=== PATIENT | male | born 1940 | race Caucasian/White ===

== ENCOUNTER 2016-08-07 19:39 | Observation (INO) | payer MEDICARE, OTHER ==
[~2016-08-07 19:39] MED LIST: ACTOS45 MG; ADULT ASPIRIN81 MG PO; ASPIR 8181 MG; ASPIR-LOW81 M1; BYETTA10 MCG/0.0; BYETTA10 MCG/0.0 SQ; CARDURA1 MG PO; CARDURA2 M2 PO; CARDURA4 MG PO; COZAAR50 MG; EQL FISH OIL 1,1 CA1 PO; FISH OIL 1,0001 CAP; FISH OIL PO; FLOMAX0.4 MG; FLOMAX0.4 MG PO; FOLIC ACID1 MG; FOLIC ACID1 MG PO; FOSAMAX70 MG; FOSAMAX70 MG PO; GLIPIZIDE ER2.5 M1 PO; GLUCOPHAGE1000 M1 PO; GLUCOPHAGE500 MG PO; IMDUR30 MG PO; ISOSORBIDE MONO30 M4 PO; ISOSORBIDE MONO60 M3 PO; LIPITOR40 MG; LOPRESSOR PO; LOPRESSOR100 M1 PO; LOPRESSOR100 MG PO; LOPRESSOR50 MG PO; LOSARTAN POTASS50 MG PO; MACROBID 100 M100 MG PO; METFORMIN HCL500 MG; NITROFURANTOIN50 M1 PO; NITROGLYCERIN0.4 M1 PO; NITROSTAT0.4 MG SL; NORVASC2.5 MG PO; NORVASC5 M1 PO; PLAVIX75 M1; PLAVIX75 MG; PLAVIX75 MG PO; PRAVACHOL80 MG PO; PROTONIX40 M2 PO; RANEXA500 MG PO; TOPROL XL100 MG; VITAMIN D; VITAMIN D1000 UNIT PO; VITAMIN D400 UNI1 PO; VITAMIN D5000 UNIT PO; ZESTRIL5 MG PO; ZETIA10 MG; ZOCOR80 MG PO; [UNRECOGNIZED DRUG - OTHER] PO
[2016-08-07 20:26] LABS: BASO % 0.3 % (0-2); EOS % 5.3 % (0-7); EOSINOPHIL ABSOLUTE COUNT 0.3 tho/cmm (0.0-0.7); HCT-HEMATOCRIT 39.7 % (36.0-53.5); HGB-HEMOGLOBIN 13.8 gm/dl (13.5-17.0); IMMATURE GRANULOCYTES ABSOLUTE 0.01 tho/cmm (0-0.03); IMMATURE GRANULOCYTES PERCENT 0.2 % (0-0.3); LYMPH % 27.4 % (20-45); LYMPH ABSOLUTE COUNT 1.6 tho/cmm (0.8-4.5); MCH (MEAN CORPUSCULAR HGB) 31.3 pg (28.0-32.0); MCHC MEAN CORPUSCULAR HGB CONC 34.8 % (32.0-36.0); MEAN PLATELET VOLUME 9.5 cmc (9.4-12.4); MONO % 10.2 % (0-12); MONOCYTE ABSOLUTE COUNT 0.6 tho/cmm (0.0-1.2); NEUTROPHIL ABSOLUTE COUNT 3.3 tho/cmm (1.6-8.0); NEUTROPHIL-AUTOMATED 3.3 tho/cmm (1.6-8.0); NEUTROPHILS % 56.6 % (40-80); PLATELET COUNT 166 tho/cmm (150-450); RED BLOOD COUNT 4.41 mil/cmm (4.40-5.70); WHITE BLOOD COUNT 5.8 tho/cmm (4.0-10.0)
[2016-08-07 20:42] LABS: ANION GAP 12 mmol/L (0-20); BLOOD UREA NITROGEN 18 mg/dl (6-24); CALCIUM 8.7 mg/dl (8.5-10.5); CARBON DIOXIDE-VENOUS 29 mmol/L (22-32); CHLORIDE 104 mmol/l (96-110); CREATININE 1.33 mg/dl (0.60-1.30); GLUCOSE 160 mg/dL (70-110); POTASSIUM 4.3 mmol/L (3.7-5.1); SODIUM 141 mmol/L (135-145); eGFR VALUE FOR BLACK 59 mL/Min
[2016-08-08 06:10] LABS: BLOOD UREA NITROGEN 19 mg/dl (6-24); CALCIUM 8.6 mg/dl (8.5-10.5); CARBON DIOXIDE-VENOUS 26 mmol/L (22-32); CHLORIDE 105 mmol/l (96-110); GLUCOSE 147 mg/dL (70-110); SODIUM 140 mmol/L (135-145)
[2016-08-08 06:13] LABS: CHOLESTEROL 133 mg/dl (120-200); CREATININE 1.24 mg/dl (0.60-1.30); HDL CHOLESTEROL 28 mg/dl (40-60); VLDL 88 mg/dl (0-30); eGFR VALUE FOR BLACK 64 mL/Min
[2016-08-08 06:26] LABS: ANION GAP 13 mmol/L (0-20); TRIGLYCERIDES 442 mg/dl (<149)
[2016-08-08 06:27] LABS: POTASSIUM 4.2 mmol/L (3.7-5.1)
[2016-08-09 03:17] LABS: ANION GAP 10 mmol/L (0-20); BLOOD UREA NITROGEN 16 mg/dl (6-24); CALCIUM 8.2 mg/dl (8.5-10.5); CARBON DIOXIDE-VENOUS 27 mmol/L (22-32); CHLORIDE 109 mmol/l (96-110); CREATININE 1.19 mg/dl (0.60-1.30); GLUCOSE 145 mg/dL (70-110); POTASSIUM 4.2 mmol/L (3.7-5.1); SODIUM 142 mmol/L (135-145); eGFR VALUE FOR BLACK 67 mL/Min
== END 2016-08-09 09:39 ==
LOC: EDMED 19:39 → EMR2 21:23 → CAR1 23:25 → PCUA 08-08 15:52
PROVIDERS: Emergency Medicine; Internal Medicine Interventional Cardiology; Physician Assistant Medical; ADMIT Internal Medicine Cardiovascular Disease
PROC: 4A023N7 Measurement of Cardiac Sampling and Pressure, Left Heart, Percutaneous Approach (ICD-10-PCS; principal; 2016-08-08)
PROC: B2131ZZ Fluoroscopy of Multiple Coronary Artery Bypass Grafts using Low Osmolar Contrast (ICD-10-PCS; 2016-08-08)
PROC: B2151ZZ Fluoroscopy of Left Heart using Low Osmolar Contrast (ICD-10-PCS; 2016-08-08)
PROC: 027135Z Dilation of Coronary Artery, Two Arteries with Two Drug-eluting Intraluminal Devices, Percutaneous Approach (ICD-10-PCS; 2016-08-08)
DX: I25.110 Atherosclerotic heart disease of native coronary artery with unstable angina pectoris (principal); I73.9 Peripheral vascular disease, unspecified; I10 Essential (primary) hypertension; E11.9 Type 2 diabetes mellitus without complications; E78.5 Hyperlipidemia, unspecified; Z79.82 Long term (current) use of aspirin; Z79.84 Long term (current) use of oral hypoglycemic drugs; Z79.02 Long term (current) use of antithrombotics/antiplatelets; Z79.899 Other long term (current) drug therapy; Z88.8 Allergy status to other drugs, medicaments and biological substances; Z95.2 Presence of prosthetic heart valve; Z95.1 Presence of aortocoronary bypass graft; Z98.890 Other specified postprocedural states
CPT/HCPCS: C1725; C1769; C1874; C1887; C9604-LD; G0378; J1644; J1815; J2250; J3010; J7030; Q9967